=== PATIENT | male | born 1965 | race Two or more races ===

== ENCOUNTER 2018-04-18 10:40 | Emergency (ER) | payer OTHER ==
[2018-04-18 10:50] VITALS: TEMP 99.1; BMI 23.5
--- NOTE | 2018-04-18 10:57 | PDOC ---
History of Present Illness - General Chief Complaint: Lightheaded Stated Complaint: LIGHTHEADED Time Seen by Provider: 04/18/18 10:56 History Source: Patient, Family Exam Limitations: No Limitations - History of Present Illness Initial Comments: 52 y/o male with palpitations and heart feels like its straining. Became concerned when he developed dizziness and felt like he was going to pass out. Father yesterday morning. Pt states he has only slept four hours in past two days. Family present for interview state he has not been sleeping for past four days. Came home last evening after , showered, and began moving furniture. Has consumed coffee this morning. Pt has a medical history significant for aortic valve replacement x2. Had a full cardiac workup last week, including treadmill test and stress echo; results pending. Also completed two week halter monitor with unremarkable results. Past History - Past Medical History Allergies/Adverse Reactions: Allergies Allergy/AdvReac Type Severity Reaction Status Date / Time No Known Allergies Allergy Unverified 11/07/12 20:22 Home Medications: Ambulatory Orders Aspirin [Aspirin EC] 81 mg PO DAILY 08/01/16 Multivitamins [Tab-A-Vit -] 1 tab PO DAILY 08/01/16 Cardiac Disorders: Yes (ENDOCARDITIS) COPD: No Other medical history: STREP VIRIDIANS INFECTION - Surgical History Cardiac Surgery: Yes (VALVE REPLACEMENT X2) Comments:: - Aortic Valve Replacement, 2001 - Second aortic valve replacement, 2011, - Suicide/Smoking/Psychosocial Hx Smoking History: Never smoked Hx Alcohol Use: Yes (RARE) Drug/Substance Use Hx: No Substance Use Type: None Review of Systems - Review of Systems Able to Perform ROS?: Yes Is the patient limited Ukrainian proficient: No Constitutional: Yes: Loss of Appetite, Weakness. No: Chills, Diaphoresis, Fever HEENTM: Yes: Blurred Vision. No: Hearing Loss, Throat Pain, Difficulty Swallowing Respiratory: Yes: SOB with Exertion. No: Cough, Orthopnea Cardiac (ROS): Yes: Palpitations. No: Syncope ABD/GI: Yes: Poor Fluid Intake. No: Constipated, Diarrhea, Difficulty Swallowing, Nausea, Rectal Bleeding, Vomiting, Tarry Stools : No: Burning, Dysuria, Discharge, Hematuria Musculoskeletal: No: Muscle Weakness Integumentary: No: Rash Neurological: Yes: Weakness, Dizziness. No: Headache, Numbness, Paresthesia Hematologic/Lymphatic: No: Easy Bleeding, Easy Bruising *Physical Exam - Vital Signs Last Vital Signs Temp Pulse Resp BP Pulse Ox 99.1 F 56 L 16 145/89 100 04/18/18 10:42 04/18/18 10:42 04/18/18 10:42 04/18/18 10:42 04/18/18 10:42 - Physical Exam Comments: Constitutional: Well-developed, well-nourished male in no acute distress. Thin, athletic body habitus. Found semi-fowlers in hospital bed. Alert and oriented x4. Answered all questions appropriately and completely. Speech was non-labored , non-pressured. HEENT: Normocephalic. No obvious external signs of trauma. Hearing grossly normal. No nasal discharge. Neck is supple, trachea is midline. No JVD. Cardiovascular: Bradycardic rate of 57 and regular rhythm. 2/5 systolic murmur , loudest with expiration in aortic area. No rubs, clicks, or gallops. Peripheral pulses: Radial pulses full Respiratory: Equal chest rise and fall. Clear to auscultation bilaterally. No stridor, no wheezing, no rhonchi. Gastrointestinal: abdomen is soft, non-tender, non-distended. No pulsatile masses. No overlying skin lesions or obvious signs of trauma. Neuro: Alert and oriented. Moving all four extremities spontaneously. Psych: Affect: appropriate. Mood: normal. Skin: Warm, dry, and intact. Large healed surgical scar on midline of chest. ED Treatment Course - LABORATORY CBC & Chemistry Diagram: 04/18/18 11:25 04/18/18 11:25 Medical Decision Making - Medical Decision Making *Reviewed nursing notes and prior visit documentation. 52 y/o complaining of palpitations and chest discomfort with dizziness and presyncope since last night. This is occurring in setting of recent family and multiple days without sleep and decreased PO intake. History significant for aortic valve replacement x2, last in 2011 with bovine valve. Recent full cardiac workup. Afebrile. Bradycardic and mildly hypertensive. PE unremarkable for loud cardiac murmur. HR is likely secondary to athletic conditioning. Symptoms likely secondary to exhaustion / life stress induced / poor PO intake in past few days. Will ACS r/o with age. Low suspicion for valvular rupture without loud blowing systolic murmur. Will obtain CBC, CMP, and cardiac profile. Ordered NS for rehydration and 12-lead EKG. Initial EKG: Sinus bradycardia with rate of 57. Normal axis. No ST segment elevation or depression. Single PVC noted. Trop negative. CBC and CMP unremarkable for derangement from normal values. Pt reports symptoms have resolved after 2L of NS. Reports he now feels tired and would like to go home and sleep. Discussed results and plan to discharge home with regular follow up with PCP and colors custodian. Pt and family expressed verbal understanding and agreement. Return precautions provided. *DC/Admit/Observation/Transfer Diagnosis at time of Disposition: Palpitations - Discharge Dispostion Disposition: HOME Condition at time of disposition: Good Decision to Admit order: No - Referrals Referrals: Sudhir Ramires MD [Primary Care Provider] - - Patient Instructions Printed Discharge Instructions: DI for Dehydration -- Adult Additional Instructions: Your laboratory / imaging results were negative for abnormalities or injuries. Your symptoms are likely because of your lack of sleep, decreased eating, and recent life stress. Follow up with your physician and consultants as previously scheduled. Continue taking your medications as prescribed. Return if worsening symptoms including fevers, headache, vomiting, visual or hearing disturbances, abdominal pain, chest pain, shortness of breath, syncope, dehydration, inability to take things by mouth, altered mental status, or worsening concerning symptoms. Print Language: GEORGIAN - Post Discharge Activity
--- NOTE | 2018-04-18 11:12 | PDOC ---
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 He has spent the last 72 hours in the hospital with his father, who this morning. He states he got 3 hours of sleep in those 72 hrs, and when he got home today, he started moving around his father's medical equipment (commode, etc). He took a shower as well. Has not slept yet. He drank coffee at 3am, and has not been eating well. Denies SOB, cp. - Physicial Exam PE: GENERAL: Awake, alert, and fully oriented, in no acute distress HEAD: No signs of trauma EYES: PERRLA, EOMI, sclera anicteric, conjunctiva clear ENT: Auricles normal inspection, hearing grossly normal, nares patent, oropharynx clear without exudates. Moist mucosa NECK: Normal ROM, supple, no lymphadenopathy, JVD, or masses LUNGS: Breath sounds equal, clear to auscultation bilaterally. No wheezes, and no crackles HEART: Regular rate and rhythm, normal S1 and S2, no murmurs, rubs or gallops ABDOMEN: Soft, nontender, normoactive bowel sounds. No guarding, no rebound. No masses EXTREMITIES: Normal range of motion, no edema. No clubbing or cyanosis. No cords, erythema, or tenderness NEUROLOGICAL: Cranial nerves II through XII grossly intact. Normal speech, normal gait SKIN: Warm, Dry, normal turgor, no rashes or lesions noted. - Medical Decision Making Most likely etiology is sleep deprivation, however, in light of 2 PVCs on EKG and his prior history, labs and CXR obtained. Workup all within normal limits, and he improved significantly with IV fluids. Stable for DC home.
[2018-04-18] MEDS ORDERED: SODIUM CHLORIDE 0.9% 500 ML INFUS.BAG IV ONE ×2 (11:19→12:32)
[2018-04-18 11:57] LABS: BASO % 0.7 % (0-2.0); EOS % 0.3 % (0-4.5); HEMATOCRIT 44.2 % (35.4-49); HEMOGLOBIN 15.4 GM/dl (11.7-16.9); LYMPH % 17.2 % (8-40); MCH 29.5 pg (25.7-33.7); MCHC 34.8 g/dl (32.0-35.9); MEAN CELL VOLUME 84.9 fl (80-96); MEAN PLT VOLUME 7.9 fl (7.5-11.1); MONO % 5.2 % (3.8-10.2); NEUT % 76.6 % (42.8-82.8); PLATELET COUNT 169 K/MM3 (134-434); RBC 5.21 M/mm3 (4.00-5.60); RDW 12.8 % (11.9-15.9); WHITE BLOOD COUNT 6.9 K/mm3 (4.0-10.8)
[2018-04-18 12:21] LABS: ALBUMIN 4.7 g/dl (3.5-5.0); ALK PHOS 45 U/L (32-92); ANION GAP 7 (8-16); BILIRUBIN,TOTAL 0.9 mg/dl (0.2-1.0); BLOOD UREA NITROGEN 19 mg/dl (7-18); CALCIUM 9.4 mg/dl (8.4-10.2); CHLORIDE 103 mmol/L (98-107); CO2 28 mmol/L (22-28); CREATININE 1.1 mg/dl (0.6-1.3); GLUCOSE,RANDOM 93 mg/dl (74-106); POTASSIUM 3.7 mmol/L (3.5-5.1); SGOT/AST 23 U/L (10-42); SGPT/ALT 20 U/L (10-40); SODIUM 138 mmol/L (136-145); TOT PROT 7.3 g/dl (6.4-8.3)
[2018-04-18 12:38] VITALS: BP 130/79; PULSE 63
--- NOTE | 2018-04-19 10:50 | EKG ---
Test Reason : Blood Pressure : / mmHG Vent. Rate : 057 BPM Atrial Rate : 057 BPM P-R Int : 154 ms QRS Dur : 104 ms QT Int : 436 ms P-R-T Axes : 051 027 -38 degrees QTc Int : 424 ms SINUS BRADYCARDIA WITH OCCASIONAL PREMATURE VENTRICULAR COMPLEXES NONSPECIFIC T WAVE ABNORMALITY ABNORMAL ECG NO PREVIOUS ECGS AVAILABLE Confirmed by JOSE REDDY, BECKY ([id number]) on 04/19/2018 10:50:14 AM Referred By: GREG SEWELL Confirmed By:BECKY GARCIA MD
== END 2018-04-18 13:07 | disposition home or self-care (01) ==
LOC: FER 10:40
DX: R00.2 Palpitations (principal); Z95.2 Presence of prosthetic heart valve
CPT/HCPCS: 36415; 80053; 82550; 84484; 85025; 93005; 99285-25

== ENCOUNTER 2018-04-18 18:02 | Emergency (ER) | payer OTHER ==
[2018-04-18 18:10] VITALS: PULSE 60; TEMP 98.4; BMI 23.5
--- NOTE | 2018-04-18 19:04 | PDOC ---
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 He presented to [facility] ER this morning for episode of weakness, near syncope after sleep deprivation and high stress after recent father's . Was discharged from ED after being given fluids, and negative EKG and Trops. Back today after 3 hour nap and full meal, feeling the same. Denies chest pain, sob. Past History - Past Medical History Allergies/Adverse Reactions: Allergies Allergy/AdvReac Type Severity Reaction Status Date / Time No Known Allergies Allergy Unverified 04/18/18 18:10 Home Medications: Ambulatory Orders Aspirin [Aspirin EC] 81 mg PO DAILY 08/01/16 Multivitamins [Tab-A-Vit -] 1 tab PO DAILY 08/01/16 Cardiac Disorders: Yes (ENDOCARDITIS) COPD: No - Surgical History Cardiac Surgery: Yes (VALVE REPLACEMENT X2) - Suicide/Smoking/Psychosocial Hx Smoking History: Never smoked Hx Alcohol Use: Yes (RARE) Drug/Substance Use Hx: No Substance Use Type: None Review of Systems - Review of Systems Able to Perform ROS?: Yes Is the patient limited Togolese proficient: No Constitutional: No: Symptoms Reported HEENTM: No: Symptoms Reported Respiratory: No: Symptoms reported Cardiac (ROS): Yes: See HPI ABD/GI: No: Symptoms Reported : No: Symptoms Reported Musculoskeletal: No: Symptoms Reported Integumentary: No: Symptoms Reported Neurological: No: Symptoms reported All Other Systems: Reviewed and Negative *Physical Exam - Vital Signs Last Vital Signs Temp Pulse Resp BP Pulse Ox 98.4 F 60 18 120/65 99 04/18/18 18:06 04/18/18 18:06 04/18/18 18:06 04/18/18 18:06 04/18/18 18:06 - Physical Exam General Appearance: Yes: Nourished, Appropriately Dressed, Apparent Distress HEENT: positive: EOMI, ANA CRISTINA, Normal ENT Inspection Respiratory/Chest: positive: Lungs Clear, Normal Breath Sounds. negative: Chest Tender, Respiratory Distress Cardiovascular: positive: Regular Rhythm, Regular Rate, S1, S2 Gastrointestinal/Abdominal: positive: Normal Bowel Sounds, Flat, Soft. negative : Tender Musculoskeletal: positive: Normal Inspection. negative: CVA Tenderness Extremity: positive: Normal Capillary Refill, Normal Inspection, Normal Range of Motion Integumentary: positive: Normal Color, Dry, Warm Neurologic: positive: Fully Oriented, Alert, Normal Mood/Affect, Normal Response , Motor Strength 5/5 Medical Decision Making - Medical Decision Making 04/18/18 19:30 Will check second set of troponin here. EKG: Sinus Bradycardia and T-wave inversions unchanged from previous EKG 04/18/18 20:08 Negative troponin. ok to discharge. Follow up with PCP. *DC/Admit/Observation/Transfer Diagnosis at time of Disposition: Palpitations - Discharge Dispostion Disposition: HOME Condition at time of disposition: Improved Decision to Admit order: No - Referrals - Patient Instructions Printed Discharge Instructions: DI for Palpitations Additional Instructions: Follow up with your vacuum forming machine operator within the next 2-3 days. Come back to the emergency department for any new, worsening or concerning symptom. - Post Discharge Activity
--- NOTE | 2018-04-18 19:27 | PDOC ---
Attending Attestation - Physicial Exam PE: 04/18/18 19:35 Well developed, well nourished. Awake and alert. No acute distress. HEENT: Normocephalic, atraumatic. PERRLA, EOMI. No conjunctival pallor. Sclera are non- icteric. Moist mucous membranes. Oropharynx is clear. NECK: Supple. Full ROM. No JVD. Carotid pulses 2+ and symmetric, without bruits. No thyromegaly. No lymphadenopathy. CARDIOVASCULAR: +Murmur. Regular rate and rhythm. No rubs, or gallops. Distal pulses are 2+ and symmetric. PULMONARY: No evidence of respiratory distress. Lungs clear to auscultation bilaterally. No wheezing, rales or rhonchi. ABDOMINAL: Soft. Non-tender. Non-distended. No rebound or guarding. No organomegaly. Normoactive bowel sounds. MUSCULOSKELETAL Normal range of motion at all joints. No bony deformities or tenderness. No CVA tenderness. EXTREMITIES: Well healed sternotomy scar. No cyanosis. No clubbing. No edema. No calf tenderness. SKIN: Warm and dry. Normal capillary refill. No rashes. No jaundice. NEUROLOGICAL: Alert, awake, appropriate. Cranial nerves 2-12 intact. No deficits to light touch and temperature in face, upper extremities and lower extremities. No motor deficits in the in face, upper extremities and lower extremities. Normoreflexic in the upper and lower extremities. Normal speech. Toes are down- going bilaterally. PSYCHIATRIC: Cooperative. Good eye contact. Appropriate mood and affect. <MandoAugusto - Last Filed: 04/18/18 19:35> - Resident Resident Name: Ross Negro - ED Attending Attestation I have performed the following: I have examined & evaluated the patient, The case was reviewed & discussed with the resident, I agree w/resident's findings & plan, Exceptions are as noted - HPI HPI: 04/18/18 20:11 52-year-old male who recently lost his father was seen earlier today at times a for palpitations and received IV fluids. He returns today because he had an episode of being clammy and felt his heart beat was "strong" -denies any dyspnea,anterior chest pain -Medical history significant for aortic valve replacement twice -He saw his investment officer last week and recently had an echo done. He also states that he had a 2 week Holter monitor that finished last week - Medical Decision Making 04/18/18 20:19 pt seen at [facility] earlier today and had labs and ekg done,received IVF and discharged home 04/18/18 20:21 negative troponin todays's ekg compared to prior ekg (08/06)and there are no significant changes discharged home to follow up with his investment officer <Salena Flores - Last Filed: 04/18/18 20:22>
[2018-04-18 19:44] VITALS: BP 124/83
--- NOTE | 2018-04-19 16:08 | EKG ---
Test Reason : Blood Pressure : / mmHG Vent. Rate : 051 BPM Atrial Rate : 051 BPM P-R Int : 168 ms QRS Dur : 102 ms QT Int : 456 ms P-R-T Axes : 043 021 265 degrees QTc Int : 420 ms SINUS BRADYCARDIA T WAVE ABNORMALITY, CONSIDER INFEROLATERAL ISCHEMIA ABNORMAL ECG WHEN COMPARED WITH ECG OF 18-APR-2018 10:44, PREMATURE VENTRICULAR COMPLEXES ARE NO LONGER PRESENT T WAVE VARIATION Confirmed by BECKY GARCIA MD ([id number]) on 04/19/2018 4:07:57 PM Referred By: Confirmed By:BECKY GARCIA MD
== END 2018-04-18 20:58 | disposition home or self-care (01) ==
LOC: JER 18:02
DX: R00.2 Palpitations (principal); Z95.2 Presence of prosthetic heart valve
CPT/HCPCS: 36415; 84484; 93005; 93010; 99282-25

== ENCOUNTER 2019-09-26 06:57 | Emergency (ER) | payer OTHER ==
[2019-09-26 07:08] VITALS: BP 100/70; PULSE 56; TEMP 97.8; BMI 23.5
[2019-09-26] MEDS ORDERED: CEPHALEXIN MONOHYDRATE 500 MG CAPSULE (UD) PO ONE (07:09)
[2019-09-26] MEDS ORDERED: SULFAMETHOXAZOLE/TRIMETHOPRIM 800MG/160MG D.S. TABLET PO ONE (07:09)
--- NOTE | 2019-09-26 07:24 | PDOC ---
History of Present Illness - General Chief Complaint: Pain Stated Complaint: PAIN IN RIGHT HEEL SINCE YESTERDAY Time Seen by Provider: 09/26/19 06:59 - History of Present Illness Initial Comments: 09/26/19 07:09 53yo male with hx of aortic valve replacement-bovine and HLD presents for eval of R ankle swelling and pain since thursday. Hx of cellulitis in the past. Pt denies trauma, bites, injury, new shoes. Pt states he noticed pain and slight redness to the R posterior ankle along his achilles. Denies increasing redness, fevers, chills, somatic complaints. States slight pain when he walks. 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 Pt denies all other complaints. Pmhx: endocarditis (2009), hld Pshx: aortic valve replacement (x2) (2001, 2011) All: nkda PMD: Dr. Ramires Past History - Past Medical History Allergies/Adverse Reactions: Allergies Allergy/AdvReac Type Severity Reaction Status Date / Time No Known Allergies Allergy Verified 09/26/19 06:59 Home Medications: Ambulatory Orders Aspirin [Aspirin EC] 81 mg PO DAILY 08/01/16 Multivitamins [Tab-A-Vit -] 1 tab PO DAILY 08/01/16 Cephalexin Monohydrate [Keflex -] 500 mg PO Q6H #40 capsule 09/26/19 Sulfamethoxazole/Trimethoprim [Bactrim Ds -] 1 tab PO BID #20 tablet 09/26/19 Cardiac Disorders: Yes (ENDOCARDITIS) COPD: No - Surgical History Cardiac Surgery: Yes (VALVE REPLACEMENT X2) - Psycho Social/Smoking Cessation Hx Smoking History: Never smoked Have you smoked in the past 12 months: No Information on smoking cessation initiated: No Hx Alcohol Use: No Drug/Substance Use Hx: No Substance Use Type: None Review of Systems - Review of Systems Able to Perform ROS?: Yes Is the patient limited Faroese proficient: No Constitutional: No: Chills, Fever HEENTM: No: Nose Congestion, Throat Pain Respiratory: No: Cough, Shortness of Breath Cardiac (ROS): No: Chest Pain, Palpitations ABD/GI: No: Diarrhea, Nausea, Vomiting, Abdominal cramping : No: Burning, Dysuria Musculoskeletal: Yes: Joint Pain (R ankle) Integumentary: Yes: Erythema (R posterior ankle) Neurological: No: Headache, Numbness, Paresthesia, Tingling, Weakness, Ataxia All Other Systems: Reviewed and Negative *Physical Exam - Vital Signs Last Vital Signs Temp Pulse Resp BP Pulse Ox 97.8 F 56 L 16 100/70 100 09/26/19 07:02 09/26/19 07:02 09/26/19 07:02 09/26/19 07:02 09/26/19 07:02 - Physical Exam General Appearance: Yes: Nourished, Appropriately Dressed. No: Apparent Distress HEENT: positive: EOMI Neck: positive: Supple Respiratory/Chest: positive: Lungs Clear, Normal Breath Sounds. negative: Respiratory Distress Cardiovascular: positive: Regular Rhythm, Regular Rate, S1, S2. negative: Edema Gastrointestinal/Abdominal: positive: Soft. negative: Guarding, Rebound, Tenderness Musculoskeletal: positive: Normal Inspection Extremity: positive: Normal Capillary Refill, Normal Range of Motion, Erythema ( R posterior ankle over the distal achilles, no crepitus, no lymphangitic spread , mild warmth, mild ttp, pulses intact b/l). negative: Pedal Edema, Calf Tenderness Integumentary: positive: Erythema (R posterior ankle ) Neurologic: positive: Fully Oriented, Alert, Normal Mood/Affect, Normal Response , Motor Strength 5/5 ED Treatment Course - RADIOLOGY Radiology Studies Ordered: Category Date Time Status ANKLE & FOOT-RIGHT* [RAD] Stat Radiology 09/26/19 07:08 Ordered Medical Decision Making - Medical Decision Making 09/26/19 07:24 a/p: 53yo male with hx of endocarditis and av replacement with R ankle redness -concern for cellulitis -will send for xray -abx -localized infection, no systemic symptoms -discussed follow up with dr. ramires in next 48 hours for wound check -discussed lymphangitic spread and failed abx management and all reasons to return to the ED -pt is nontoxic in appearance 09/26/19 07:35 xray reviewed without any signs of deeper infection will dose abx in the ER and send rx to pharmacy discussed xray findings and need for follow up discussed in detail all reasons to return to the er answered all questions pt stable for dc to home pt is nontoxic in appearance Discharge - Discharge Information Problems reviewed: Yes Clinical Impression/Diagnosis: Cellulitis of right ankle Condition: Stable Disposition: HOME - Admission No - Additional Discharge Information Prescriptions: Cephalexin Monohydrate [Keflex -] 500 mg PO Q6H #40 capsule Sulfamethoxazole/Trimethoprim [Bactrim Ds -] 1 tab PO BID #20 tablet - Follow up/Referral Referrals: Sudhir Ramires MD [Primary Care Provider] - - Patient Discharge Instructions Patient Printed Discharge Instructions: DI for Cellulitis -- Adult Additional Instructions: Please take all antibiotics as prescribed. Please make a follow up appointment with Dr. Ramires for the next 48 hours. If the redness spread, you develop fever/chills or any symptoms worsen please return to the ER immediately. - Post Discharge Activity
[2019-09-26] MEDS ORDERED: CEPHALEXIN MONOHYDRATE 500 MG CAPSULE (UD) ONE (07:36)
[2019-09-26] MEDS ORDERED: SULFAMETHOXAZOLE/TRIMETHOPRIM 800MG/160MG D.S. TABLET ONE (07:36)
== END 2019-09-26 07:43 | disposition home or self-care (01) ==
LOC: FER 06:57
DX: L03.115 Cellulitis of right lower limb (principal); I38 Endocarditis, valve unspecified; E78.5 Hyperlipidemia, unspecified
CPT/HCPCS: 73610-TC-RT-FY; 73630-TC-RT-FY; 99281-25

== ENCOUNTER 2021-09-06 09:29 | Emergency (ER) | payer OTHER ==
[2021-09-06 09:37] VITALS: BP 122/78; PULSE 80; TEMP 99; BMI 23.5
== END 2021-09-06 10:32 | disposition home or self-care (01) ==
LOC: FER 09:29
PROC: 3E0234Z Introduction of Serum, Toxoid and Vaccine into Muscle, Percutaneous Approach (ICD-10-PCS; principal; 2021-09-06)
DX: S60.811A Abrasion of right wrist, initial encounter (principal); S60.812A Abrasion of left wrist, initial encounter; S61.551A Open bite of right wrist, initial encounter; S61.552A Open bite of left wrist, initial encounter; W55.01XA Bitten by cat, initial encounter
CPT/HCPCS: 90715; 99284-25

== ENCOUNTER 2021-09-07 06:55 | Emergency (ER) | payer OTHER ==
[2021-09-07 07:11] VITALS: BP 114/66; PULSE 58; TEMP 99.9; BMI 23.5
[2021-09-07] MEDS ORDERED: VANCOMYCIN 1 GM in D5W (PRE-DOCKED) 1,000 MG/250 ML IVPB ONE (07:24)
[2021-09-07] MEDS ORDERED: PIPERACILLIN/TAZOB 3.375 GM 3.375 GM in DEXTROSE 5%-WATER - 50 ML IVPB ONE (07:24)
[2021-09-07] MEDS ORDERED: PIPERACILLIN/TAZOBACTAM 3.375 GM VIAL IVPB ONE (08:14)
[2021-09-07] MEDS ORDERED: VANCOMYCIN 1,000 MG VIAL (RESTRICTED TO ID ONLY) ONE (08:14)
[2021-09-07 08:28] LABS: ALBUMIN 4.5 g/dl (3.4-5.0); BILIRUBIN,TOTAL 1.5 mg/dl (0.2-1); CALCIUM 9.1 mg/dl (8.5-10); CREATININE 1.3 mg/dl (0.55-1.3); TOT PROT 7.2 g/dl (6.4-8.2)
[2021-09-07 09:16] LABS: BASO % 0.6 % (0-2.0); EOS % 0.2 % (0-4.5); HEMATOCRIT 43.2 % (35.4-49); HEMOGLOBIN 14.5 GM/dL (11.7-16.9); LYMPH % 7.8 % (8-40); MCH 29.1 pg (25.7-33.7); MCHC 33.7 g/dl (32.0-35.9); MEAN CELL VOLUME 86.3 fl (80-96); MEAN PLT VOLUME 8.4 fl (7.5-11.1); MONO % 8.2 % (3.8-10.2); NEUT % 83.2 % (42.8-82.8); PLATELET COUNT 148 10^3/uL (134-434); WHITE BLOOD COUNT 11.1 K/mm3 (4.0-10.0)
== END 2021-09-07 09:34 | disposition short-term general hospital (02) ==
LOC: FER 06:55
PROC: 3E033GC Introduction of Other Therapeutic Substance into Peripheral Vein, Percutaneous Approach (ICD-10-PCS; principal; 2021-09-07)
DX: S61.452A Open bite of left hand, initial encounter (principal); L03.114 Cellulitis of left upper limb; W55.01XA Bitten by cat, initial encounter
CPT/HCPCS: 36415; 80053; 85025; 87040; 93005; 99285-25; C9803; U0003; U0005